=== PATIENT | male | born 1975 | race Caucasian/White ===

== ENCOUNTER 2024-08-11 06:07 | Day surgery (SDC) | payer OTHER, BC, SELFPAY ==
[2024-08-11] VITALS (8 sets, daily range): BP systolic 118–148; BP diastolic 84–96; BMI 37.6
--- NOTE | 2024-08-11 12:30 | PTCARENOTE ---
L arm wipe ordered not done because patient has a large nuha wrap to the L arm.
[2024-08-11] MEDS: CELEBREX 200 MG PO (12:36)
[2024-08-11] MEDS: TYLENOL 1000 MG PO (12:36)
[2024-08-11] MEDS: NORMOSOL-R/PLASMALYTE-A 1000 IV (12:48)
== END 2024-08-11 18:25 | disposition home or self-care (01) ==
LOC: SDS 06:07
PROVIDERS: ATTENDING PHYSICIAN Orthopaedic Surgery Hand Surgery
DX: S52.572A Other intraarticular fracture of lower end of left radius, initial encounter for closed fracture (principal); X58.XXXA Exposure to other specified factors, initial encounter; Y93.9 Activity, unspecified; Y92.89 Other specified places as the place of occurrence of the external cause; Y99.0 Civilian activity done for income or pay; S52.602A Unspecified fracture of lower end of left ulna, initial encounter for closed fracture
CPT/HCPCS: 25609; 25652; C1713 ×2; 93005